=== PATIENT | male | born 1985 | race Caucasian/White ===

== ENCOUNTER 2017-05-15 12:31 | Emergency (ER) | payer OTHER ==
[2017-05-15] MEDS ORDERED: KETOROLAC TROMETHAMINE 30 MG/ML VIAL ONE (13:08)
--- NOTE | 2017-05-15 13:23 | RADIOLOGY REPORT ---
HISTORY: Shoulder and humerus pain. COMPARISON: None. TECHNIQUE: AP and lateral left humerus. FINDINGS: There is a comminuted fracture involving the base of the scapula at the base of the glenoid. No acute humerus fracture is identified. There is normal bone mineralization. The soft tissues appear unremar kable. IMPRESSION: Comminuted scapular fracture at the base of the glenoid. Final Electronic Signature: This report was electronically signed by Garrick Schmidt MD on 05/15/2017 1: 21 PM. vel /
--- NOTE | 2017-05-15 13:24 | RADIOLOGY REPORT ---
HISTORY: Shoulder pain, injury. COMPARISON: None. FINDINGS: 3 views of the shoulder obtained. There is a comminuted and displaced fracture of the scapular body, with fracture fragment present along the inferior margin of the glenoid neck, but no definite intra-a rticular displacement is visualized. A CT scan of the scapula is advised for further characterization . Glenohumeral joint alignment appears grossly normal. IMPRESSION: Comminuted and displaced scapular fracture. A CT scan without intravenous contrast is recommended for further evaluation. Final Electronic Signature: This report was electronically signed by Andrew Nieto MD on 05/15/2017 1: 22 PM. [email or web address] /
[2017-05-15] MEDS ORDERED: LIDOCAINE HCL 2% JELLY 1 APP/5 ML TUBE ONE (13:36)
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
[2017-05-15] MEDS ORDERED: BACITRACIN 1 APP/PKT PKT TOPICAL ONE (14:05)
[2017-05-15] MEDS ORDERED: DIPH,PERTUSS(ACELL),TET VAC/PF 0.5 ML VIAL IM ONE (14:05)
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
== END 2017-05-15 15:07 | disposition home or self-care (01) ==
LOC: ER 12:31
DX: S42.102A Fracture of unspecified part of scapula, left shoulder, initial encounter for closed fracture (principal); S40.812A Abrasion of left upper arm, initial encounter; S40.212A Abrasion of left shoulder, initial encounter; V18.0XXA Pedal cycle driver injured in noncollision transport accident in nontraffic accident, initial encounter; Y92.838 Other recreation area as the place of occurrence of the external cause; Y93.55 Activity, bike riding; Z23 Encounter for immunization
CPT/HCPCS: 73200; 90471; 96374; 99284; A0425; A0429; J1885